=== PATIENT | female | born 1965 | race Caucasian/White ===

== ENCOUNTER 2024-08-02 12:02 | Outpatient (AMB) | payer BC, SELFPAY ==
--- NOTE | 2024-08-02 13:05 | MHC.OFFWIV ---
Intake Vital Signs 08/02/24 13:07 Height 5 ft 4 in Weight 128 lb BMI 22.0 BP 200/100 H Blood Pressure Location Lt brachial Position Sitting Pulse 78 Pulse Source Pulse Oximeter Temp 98.0 F Temp Source Oral Pulse Oximetry (%) 98 Oxygen Delivery Method Room Air Intake Visit Reasons: [employer] LT calf pain Intake Note: Pt c/o Lt calf pain, started Thursday last week Patient Tobacco Use Status: Current everyday Tobacco user Allergies sulfamethoxazole [From BACTRIM] Allergy (Mild, Verified 08/02/24 13:15) HIVES trimethoprim [From BACTRIM] Allergy (Mild, Verified 08/02/24 13:15) HIVES Bactrim Allergy (Unknown, Uncoded 08/02/24 13:15) Hives Do you need a note to return to daycare/school/sports/work: No HPI [employer] LT calf pain HPI Details This is a 58-year-old female patient who presents to the walk-in clinic today with report of recurrent left calf cramps which [place] this past [place]. She states that the cramps were so severe that she had difficulty walking. No injury or inciting event. She has been putting Biofreeze on that calf and doing some stretches at home with some mild relief. She reports that the cramping may originate in her left buttock, as she does feel a tightening sensation in that area prior to the calf cramps starting. She denies any recent illness. She denies any calf redness, warmth, swelling, or pain at this time She admits that she has not seen a PCP or been on medication for her blood pressure in over 1 year. States she used to see a PCP through [facility], and missed several appointments, so dose she was discharged from their care. She used to be on amlodipine and atenolol for her BP. On initial assessment, BP was 180/100. I retook this about 20 minutes later, and BP was 200/100. Patient denies any headache, dizziness, chest pain, palpitations. [facility] Social History Patient Tobacco Use Status: Current everyday Tobacco user Review of Systems Const All systems reviewed & are unremarkable except as noted in HPI and below Physical Exam Vital Signs: Last Vital Signs Temp 98.0 F 08/02/24 13:07 Pulse 78 08/02/24 13:07 BP 200/100 H 08/02/24 13:07 Pulse Ox 98 08/02/24 13:07 Oxygen Delivery Method Room Air 08/02/24 13:07 BMI result Body Mass Index 22.0 Const General: cooperative, no acute distress, well developed and awake Nutritional Appearance: average body habitus Orientation/consciousness: patient oriented x3 Limitations: no limitations HEENT Head: Yes normal to inspection Ears: hearing grossly normal bilaterally Neck Neck: Yes normal visual inspection and Yes no lymphadenopathy Resp Effort & Inspection: normal respiratory effort and able to speak in complete sentences Auscultation: clear to auscultation bilaterally Cardio Rate: regular rate Rhythm: regular rhythm Back/Spine/Pelvis Pelvis: no pain with anterior-posterior compression Sacroiliac joints: bilaterally nontender Skin General skin exam: no rashes or lesions noted Neuro General: patient oriented x3, gait normal and deep tendon reflexes 2+ bilaterally Extrem Other: DP, PT pulses present, equal General: Yes capillary refill normal and Yes no clubbing, cyanosis or edema Left lower extremity: lower leg (no redness, ttp, warmth. Calf cirm 35.5 equal on b/l legs) Details: normal to inspection and no edema Psych Appearance: grossly normal Mental Status: mental status grossly normal Speech and movement: Normal speech and movement present Affect: Anxious affect present Assessment & Plan Assessment & Plan (1) Hypertensive urgency: Code(s): I16.0 - Hypertensive urgency Plan: Patient's BP upon subsequent manual assessment by this inspector automatic typewriter was 200/100. Patient and I discussed at length the risks of hypertension, particularly this reading, and also that she may be having sustained hypertension while unaware of this, as she has not had PCP in over 1 year, nor had BP checked since then. She was previously on amlodipine and atenolol. I discussed recommendation to obtain EKG in the office today, followed by transfer to emergency department for evaluation and treatment of her hypertensive urgency. She declined EKG, and states she does not wish to go to the emergency department at this time, as she feels fine . As for her left calf cramp, assessment on exam today is normal. I suspect this calf cramping is related to either vitamin deficiency such as magnesium, or possibly from peripheral artery disease sees secondary to her hypertension. Given that she does not wish to go to the emergency department as suggested, I recommended she increase hydration, healthy food/vitamin intake, including possible magnesium supplementation [id number], and some gentle stretching/rolling of that left calf. This inspector automatic typewriter did have patient sign forearm acknowledging that she was leaving clinic against medical advice today. We thoroughly reviewed indications for prompt emergency department evaluation, which patient verbalizes understanding of. She is going to attempt to make new patient Visit at [facility] at the [place] location today (2) Calf cramp: Code(s): R25.2 - Cramp and spasm Plan: As above. No red flags for DVT. Coding Level of Care Code Est Pt Level 4 (90865) Diagnoses Hypertensive urgency I16.0 Calf cramp R25.2
[2024-08-02 13:07] VITALS: BP 200/100; PULSE 78; TEMP 36.7; O2SAT 98; BMI 22.0
== END 2024-08-02 14:34 | disposition home or self-care (01) ==
PROVIDERS: Visit Provider Nurse Practitioner Family
DX: I16.0 Hypertensive urgency (principal); R25.2 Cramp and spasm
CPT/HCPCS: 99214